=== PATIENT | male | born 1960 | race Caucasian/White ===

== ENCOUNTER → 2025-05-24 | Day surgery (SDC) | payer MEDICAID ==
[~2025-05-24] VITALS: Ht 172.7 cm; Wt 77.1 kg
[~2025-05-24] MED LIST: ACETAMINOPHEN 325MG TABLET PO PRN; APIX5TAB MT; HEPARIN 1000 UNITS/ML 10ML ONE; HYDROMORPHONE HCL/PF 1MG/ML INJ IV PRN; LIDOCAINE 2% 6ML GLYDO ONE; LISI-186 PO; ONDANSETRON HCL 4MG/2ML INJ IV PRN; SODIUM CHLORIDE 0.45% 500 ML IV SCH; SOTA80TA25 MT; TETRACAINE/BENZOCAINE/BUTAMBEN 20 GM SPRAY MM ONE
== END | disposition home or self-care (01) ==
LOC: CCL 06:33
PROVIDERS: ATTEND Specialist
DX: I48.0 Paroxysmal atrial fibrillation (principal); I48.92 Unspecified atrial flutter; I49.1 Atrial premature depolarization; I25.2 Old myocardial infarction; I10 Essential (primary) hypertension; I08.1 Rheumatic disorders of both mitral and tricuspid valves; Z79.01 Long term (current) use of anticoagulants; Z79.899 Other long term (current) drug therapy; Z98.890 Other specified postprocedural states
CPT/HCPCS: 93005; 92960; 93312; J1644; A4606